=== PATIENT | male | born 1955 | race Caucasian/White ===

== ENCOUNTER 2022-06-30 14:42 | Outpatient (CLI) | payer OTHER | END 2022-06-30 14:43 | disposition home or self-care (01) | LOC: CSHLAB 14:42 | PROVIDERS: ATTEND Internal Medicine Gastroenterology | DX: Z20.822 Contact with and (suspected) exposure to COVID-19 (principal) | CPT/HCPCS: 87811 ==

== ENCOUNTER 2022-07-03 07:56 | Day surgery (SDC) | payer OTHER ==
[2022-07-01 09:53] VITALS: BMI 32.8
[2022-07-03] MEDS ORDERED: Lidocaine 1% MPF 2 ML VIAL ONE (08:57)
[2022-07-03] MEDS ORDERED: Lidocaine 1% PF 5 ML VIAL ONE (09:20)
[2022-07-03] MEDS ORDERED: PROPOFOL 40 ML ONE (09:20)
[2022-07-03] MEDS ORDERED: Fentanyl 100 MCG/2 ML VIAL ONE (10:01)
== END 2022-07-03 10:50 | disposition home or self-care (01) ==
LOC: CSHSDC 07:56
PROVIDERS: ATTEND Internal Medicine Gastroenterology
PROC: 0DBL8ZZ Excision of Transverse Colon, Via Natural or Artificial Opening Endoscopic (ICD-10-PCS; principal; 2022-07-03)
PROC: 0DBN8ZZ Excision of Sigmoid Colon, Via Natural or Artificial Opening Endoscopic (ICD-10-PCS; principal; 2022-07-03)
DX: K57.31 Diverticulosis of large intestine without perforation or abscess with bleeding (principal); D12.3 Benign neoplasm of transverse colon; D12.5 Benign neoplasm of sigmoid colon; K63.5 Polyp of colon; K64.9 Unspecified hemorrhoids; E78.5 Hyperlipidemia, unspecified; K21.9 Gastro-esophageal reflux disease without esophagitis; Z79.899 Other long term (current) drug therapy; Z20.822 Contact with and (suspected) exposure to COVID-19
CPT/HCPCS: 88305; J2704; J3010

== ENCOUNTER 2024-08-16 08:26 | Outpatient (CLI) | payer BC | END 2024-08-16 08:27 | disposition home or self-care (01) | LOC: CSHMRI 08:26 | PROVIDERS: ATTEND Urology | DX: R97.20 Elevated prostate specific antigen [PSA] (principal) | CPT/HCPCS: 36415; 72197; 82565 ==